=== PATIENT | male | born 2000 | race Caucasian/White ===

== ENCOUNTER 2025-05-13 00:31 | Inpatient (IN) | payer OTHER ==
[~2025-05-13] VITALS: Ht 175.3 cm; Wt 94.5 kg
[2025-05-13 01:43] LABS: PLATELET COUNT, AUTOMATED 298 10^3/uL (150-450)
[2025-05-13 02:08] LABS: ETHYL ALCOHOL (ETHANOL) 0.003 % (0.000-0.010)
[2025-05-13 02:10] LABS: ALT/SGPT 22 U/L (7.0-40); AST/SGOT 30 U/L (<34); CALCIUM LEVEL 9.3 MG/DL (8.5-10.1); CARBON DIOXIDE LEVEL 24 MMOL/L (20-31); CHLORIDE LEVEL 103 MMOL/L (98-107); CREATININE FOR GFR 0.90 MG/DL (0.70-1.30); GLOMERULAR FILTRATION RATE > 90.0 (>60); POTASSIUM SERUM 4.0 MMOL/L (3.5-5.1); SALICYLATE LEVEL < 3.0 MG/DL (<30); SODIUM LEVEL 138 MMOL/L (136-145)
[2025-05-13 02:50] LABS: AMPHETAMINES LEVEL URINE NEGATIVE (NEGATIVE); BARBITURATES URINE NEGATIVE (NEGATIVE); BENZODIAZEPINES URINE NEGATIVE (NEGATIVE); CANNABINOIDS URINE NEGATIVE (NEGATIVE); COCAINE METABOLITE URINE NEGATIVE (NEGATIVE); METHADONE URINE NEGATIVE (NEGATIVE); OPIATES URINE NEGATIVE (NEGATIVE); PHENCYCLIDINE URINE NEGATIVE (NEGATIVE)
[2025-05-13] MEDS ORDERED: IBUPROFEN 400 MG TAB PO PRN (03:35)
[2025-05-13] MEDS ORDERED: MOM 30 ML SUSPENSION UDC PO PRN (03:35)
[2025-05-13] MEDS ORDERED: traZODone 50 MG TAB PO PRN (03:35)
[2025-05-13] MEDS ORDERED: MAALOX 30 ML SUSP *UDC PO PRN (03:35)
[2025-05-13] MEDS ORDERED: ACETAMINOPHEN 325 MG TAB PO PRN (03:35)
[2025-05-13] MEDS ORDERED: OLANZapine 5 MG TAB PO PRN (03:35)
[2025-05-13 04:25] VITALS: BP 115/71; TEMP 97.3; O2SAT 99
== END 2025-05-13 10:44 | disposition home or self-care (01) | DRG 885 ==
LOC: M ED 00:31 → M ED INP 03:31 → M PSY 04:18
PROVIDERS: ADMIT Psychiatry & Neurology Neurology; ATTEND Psychiatry & Neurology Neurology
DX: F39 Unspecified mood [affective] disorder (principal); Z65.8 Other specified problems related to psychosocial circumstances